=== PATIENT | male | born 1990 | race African-American/Black ===

== ENCOUNTER 2024-03-26 17:54 | Emergency (ER) | payer OTHER ==
[~2024-03-26] VITALS: Ht 177.8 cm; Wt 123.0 kg
[2024-03-26 17:57] VITALS: O2SAT 96
[2024-03-26 19:40] VITALS: BP 137/69; PULSE 83; RESP 16; TEMP 36.78072; O2SAT 99
== END 2024-03-26 20:16 | disposition home or self-care (01) ==
LOC: ER 17:54
DX: R55 Syncope and collapse (principal); I10 Essential (primary) hypertension; R42 Dizziness and giddiness
CPT/HCPCS: 93005; 99283; Z7610